=== PATIENT | male | born 1990 | race African-American/Black ===

== ENCOUNTER 2023-06-28 18:00 | Emergency (ER) | payer OTHER ==
[~2023-06-28] VITALS: Ht 185.4 cm; Wt 83.9 kg
[2023-06-28 19:28] VITALS: BP_SYST 126; PULSE 69; RESP 16; TEMP 97.5; O2SAT 99
[2023-06-28] MEDS ORDERED: cephALEXin 500 MG CAPSULE PO ONE (20:00)
[2023-06-28] MEDS ORDERED: IBUPROFEN 600 MG TABLET PO ONE (20:00)
[2023-06-28] MEDS ORDERED: BACITRACIN 1 GM OINT TP ONE (20:14)
[2023-06-28] MEDS ORDERED: BACITRACIN ZINC 15 GM TOPICAL OINTMENT TP ONE (20:15)
[2023-06-28] MEDS ORDERED: BACI15OI13 TP (20:43)
[2023-06-28] MEDS ORDERED: IBUP-1969 PO (20:43)
[2023-06-28] MEDS ORDERED: CEPH-548 PO (20:43)
[2023-06-28 21:11] VITALS: BP_SYST 126; PULSE 69; RESP 16; TEMP 97.5; O2SAT 99
== END 2023-06-28 21:12 | disposition home or self-care (01) ==
LOC: SED 18:00
DX: S61.502A Unspecified open wound of left wrist, initial encounter (principal); Z79.899 Other long term (current) drug therapy; X58.XXXA Exposure to other specified factors, initial encounter; Y93.89 Activity, other specified; Y92.89 Other specified places as the place of occurrence of the external cause; Y99.8 Other external cause status
CPT/HCPCS: 99284